=== PATIENT | male | born 1950 | race Caucasian/White ===

== ENCOUNTER 2016-07-16 13:39 | Outpatient (CLI) | payer OTHER ==
--- NOTE | 2016-07-16 15:05 | DIAGNOSTIC IMAGING REPORT ---
PROCEDURE: XR LUMBAR SPINE 2 OR 3 VIEWS INDICATION: RO ANKYLOSING SPONDYLITIS TECHNIQUE: Three views. COMPARISON: 10/24/2012 lumbar spine films FINDINGS: Five lumbar type vertebral bodies are present. The vertebral body heights are normal. There is diffuse flowing and bridging osteophytosis throughout the visible vertebral bodies resulting in large anterior end plate spurs. Moderate degenerative facet sclerosis at the L4-5 and L5 S1 levels is seen. The disc spaces are fairly well maintained. No definite pars defects. The AP alignment is grossly normal. There are surgical clips and tacks overlying the entire abdomen. IMPRESSION: 1. Extensive bridging osteophytosis throughout the lumbar and visible thoracic spine 2. No significant disc degeneration or spondylolisthesis. 3. Degenerative appearing facet arthropathy in the lower lumbar spine.
--- NOTE | 2016-07-16 15:09 | DIAGNOSTIC IMAGING REPORT ---
PROCEDURE: XR HIP BILATERAL INDICATION: RO ANKYLOSING SPONDYLITIS TECHNIQUE: AP view of the pelvis and hips with lateral views of the bilateral hips. COMPARISON: Pelvis and hip films dated 10/24/2012 FINDINGS: Normal mineralization. No fracture. Extensive hypertrophic spurring at both acetabulare and mild spurring along the superior femoral heads bilaterally. There is a mild to moderate joint space loss along the superolateral aspects of the hip joints bilaterally, right worse than left. Subchondral cystic change of the femoral heads is noted, the right worse than left. There is some ankylosis of the inferior aspect of the left sacroiliac joints and spurring inferiorly at the right. Pubic symphysis is normal. Extensive degenerative change in the lower lumbar spine is seen. Changes of the right-sided abdominal wall hernia repair are seen. IMPRESSION: 1. 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 2. Mild to moderate degenerative changes at both sacroiliac joints. 3. Extensive fusion of the lower lumbar spine is visualized
--- NOTE | 2016-07-16 15:17 | DIAGNOSTIC IMAGING REPORT ---
PROCEDURE: XR THORACIC SPINE 3 VIEWS INDICATION: RO ANKYLOSING SPONDYLITIS TECHNIQUE: Three views. COMPARISON: None. FINDINGS: Bridging syndesmophytes are seen throughout the thoracic spine. No evidence or fracture. IMPRESSION: 1. Ankylosing spondylitis thoracic and lumbar spine.
== END 2016-07-16 23:00 ==
LOC: XR SRH 13:39
DX: M25.78 Osteophyte, vertebrae (principal)

== ENCOUNTER 2016-08-24 09:06 | Outpatient (CLI) | payer OTHER ==
--- NOTE | 2016-08-24 10:32 | DIAGNOSTIC IMAGING REPORT ---
PROCEDURE: MR CERVICAL SPINE W/O CONT INDICATION: CERVICAL RADICULOPATHY FINDINGS: Failed exam. The patient was unable to lie flat on the MRI table, and the patient was unable to fit in the scanner due to body habitus. IMPRESSION: 1. Failed exam.
== END 2016-08-24 23:00 ==
LOC: MRI SRH 09:06
DX: M50.10 Cervical disc disorder with radiculopathy, unspecified cervical region (principal); Z53.8 Procedure and treatment not carried out for other reasons